=== PATIENT | male | born 1990 | race African-American/Black ===

== ENCOUNTER 2023-05-01 16:42 | Emergency (ER) | payer OTHER ==
[2023-05-01] MEDS ORDERED: MIDAZOLAM HCL 5 MG/1 ML Single Dose Vial IM ONE (17:12)
[2023-05-01] MEDS ORDERED: levETIRAcetam 500 MG/5 ML INJECTION VIAL IVPB ONE (17:12)
[2023-05-01 17:20] VITALS: TEMP 98.7; BMI 25.6
[2023-05-01 17:46] LABS: HEMATOCRIT 52.2 % (35.4-49); HEMOGLOBIN 18.2 G/dL (11.7-16.9); MCH 31.5 pg (25.7-33.7); MCHC 34.9 g/dl (32.0-35.9); MEAN CELL VOLUME 90.5 fl (80-96); MEAN PLT VOLUME 10.1 fl (7.5-11.1); PLATELET COUNT 234.5 10^3/uL (134-434); RBC 5.77 10^6/uL (4.00-5.60); RDW 14.8 % (11.9-15.9); WHITE BLOOD COUNT 12.3 10^3/uL (4.0-10.8)
[2023-05-01 17:55] LABS: INR 1.16 (0.83-1.09); PROTHROMBIN TIME (PATIENT) 13.4 SEC (9.7-13.0)
[2023-05-01 17:56] LABS: BILIRUBIN,TOTAL 0.7 mg/dl (0.2-1); CALCIUM 10.4 mg/dl (8.5-10.1); CREATININE 0.8 mg/dl (0.6-1.3); MAGNESIUM 1.8 mg/dL (1.8-2.4); POTASSIUM 3.4 mmol/L (3.5-5.1); TOT PROT 8.2 g/dl (6.4-8.2)
[2023-05-01 18:10] LABS: VENOUS BASE EXCESS 0.6 mmol/L (-2-2); VENOUS O2 SATURATION 94.6 % (70-80); VENOUS PH 7.395 (7.310-7.410)
[2023-05-01 18:14] VITALS: BP 129/85
[2023-05-01 18:24] LABS: PLATELET ESTIMATE ADEQUATE
[2023-05-01 18:46] LABS: LACTIC ACID 3.9 mmol/L (0.4-2.0)
[2023-05-01 18:48] VITALS: PULSE 51; RESP 20
== END 2023-05-01 19:05 | disposition short-term general hospital (02) ==
LOC: FER 16:42
PROC: 3E033GC Introduction of Other Therapeutic Substance into Peripheral Vein, Percutaneous Approach (ICD-10-PCS; principal; 2023-05-01)
PROC: 3E023GC Introduction of Other Therapeutic Substance into Muscle, Percutaneous Approach (ICD-10-PCS; 2023-05-01)
DX: G40.901 Epilepsy, unspecified, not intractable, with status epilepticus (principal); Z20.822 Contact with and (suspected) exposure to COVID-19
CPT/HCPCS: 0241U-QW; 36415; 70450-TC; 71045-TC-FY; 74018-TC-FY; 80053; 82803; 83605; 83735; 84100; 84484; 85027; 85610; 85730; 86850; 86900; 86901; 93005; 99291